=== PATIENT | female | born 2005 | race African-American/Black ===

== ENCOUNTER 2025-01-08 07:09 | Emergency (ER) | payer MEDICAID ==
[~2025-01-08] VITALS: Ht 167.6 cm; Wt 68.0 kg
[2025-01-08 07:17] VITALS: O2SAT 99
[2025-01-08] MEDS ORDERED: DOXY100C5 MT (10:06)
[2025-01-08] MEDS: CEFTRIAXONE SODIUM 500MG VIAL IM ONE (10:10)
[2025-01-08] MEDS: DOXYCYCLINE HYCLATE 100MG CAPSULE PO ONE (10:11)
[2025-01-08 10:20] VITALS: BP 128/95; PULSE 64; RESP 18; TEMP 36.5; O2SAT 99
[2025-01-08 10:55] LABS: HCG SCREEN NEGATIVE
[2025-01-10 04:12] LABS: CHLAMYDIA TRACHOMATIS NAA Negative (Negative); NEISSERIA GONORRHOEAE NAA Negative (Negative)
== END 2025-01-08 10:25 | disposition home or self-care (01) ==
LOC: ER 07:09
DX: A64 Unspecified sexually transmitted disease (principal)
CPT/HCPCS: 99283; 86592; 87491; 87591; 81025; 84703; 36415; 96372; J0696